=== PATIENT | female | born 1985 | race Caucasian/White ===

== ENCOUNTER 2019-07-02 15:14 | Inpatient (IN) | payer MEDICAID, OTHER ==
[~2019-07-02] VITALS: Ht 165.1 cm; Wt 90.9 kg
[~2019-07-02 15:14] MED LIST: DIVA500T52 PO; METF-960 PO
[2019-07-02] MEDS ORDERED: LORazepam 2 MG TABLET PO ONE (15:30)
[2019-07-02] MEDS ORDERED: DiphenhydrAMINE HCL 50 MG CAPSULE PO ONE (15:30)
[2019-07-02] MEDS ORDERED: OLANZapine 5 MG TABLET PO ONE (15:30)
[2019-07-02 16:41] LABS: BASOPHILS % (AUTO) 0.3 % (0.0-2.0); EOSINOPHILS % (AUTO) 0.1 % (1.0-6.0); HEMATOCRIT 40.1 % (36-46); HEMOGLOBIN 13.8 g/dL (12.0-16.0); LYMPHOCYTES # (AUTO) 1.8 K/uL (1.0-4.8); LYMPHOCYTES % (AUTO) 18.6 % (22.0-44.0); MEAN CORPUSCULAR HGB CONC 34.3 G/dL (31.0-37.0); MEAN CORPUSCULAR VOLUME 90 fL (80-100); MONOCYTES # (AUTO) 0.7 K/uL (0.1-1.0); MONOCYTES % (AUTO) 7.2 % (2.0-9.0); NEUTROPHILS # (AUTO) 7.1 K/uL (1.8-7.7); NEUTROPHILS % (AUTO) 73.8 % (40.0-70.0); PLATELET COUNT (AUTO) 255 K/uL (150-450); RED BLOOD CELL COUNT(AUTO) 4.44 MIL/uL (4.00-5.20); RED CELL DISTRIBUTION WIDTH 13.1 % (11.5-14.5)
[2019-07-02 16:48] LABS: ANION GAP 9 mmol/L (8-16); CALCIUM, TOTAL 8.5 mg/dL (8.8-10.5); CARBON DIOXIDE 27 mmol/L (22-29); CHLORIDE 98 mmol/L (98-107); CREATININE 0.67 mg/dL (0.60-1.30); GLOMERULAR FILTR. RATE CALC > 60 mL/min (>60); GLUCOSE,RANDOM 235 mg/dL (70-110); POTASSIUM 3.2 mmol/L (3.5-5.1); SODIUM SERUM 134 mmol/L (136-145); UREA NITROGEN, BLOOD 15 mg/dL (7-18)
[2019-07-02] MEDS ORDERED: POTASSIUM CHLORIDE 20 MEQ ER TABLET PO ONE (17:00)
[2019-07-02 17:05] LABS: ALANINE AMINOTRANSFERASE 38 U/L (12-78); ALBUMIN 3.7 g/dL (3.4-5.0); ALKALINE PHOSPHATASE 76 U/L (46-116); ASPARTATE AMINOTRANSFERASE 32 U/L (15-37); BILIRUBIN,TOTAL 0.8 mg/dL (0.1-1.0); HCG,QUANTITATIVE < 1 mIU/mL (0-6); THYROID STIMULATING HORMONE 1.07 uIU/mL (0.36-3.74); TOTAL PROTEIN, SERUM 7.2 g/dL (6.4-8.2); VALPROIC ACID 4 mcg/mL (50-100)
[2019-07-02 17:11] LABS: LITHIUM < 0.20 mmol/L (0.60-1.20)
[2019-07-02] MEDS ORDERED: ZOLPIDEM TARTRATE 10 MG TABLET PO PRN (19:45)
[2019-07-02] MEDS ORDERED: OLANZapine 5 MG RAPDIS TABLET PO PRN (19:45)
[2019-07-02] MEDS ORDERED: INFLUENZA VIRUS VACCINE QVS 2019-20 (3YR+)/PF 60 MCG/0.5 ML SYRINGE IM ONE (22:15)
[2019-07-02 22:23] VITALS: BP 149/52
[2019-07-03] MEDS: MetFORMIN HCL 500 MG TABLET PO SCH ×2 (06:44→16:39)
[2019-07-03 08:19] VITALS: BP 118/62
[2019-07-03 16:00] VITALS: BP 110/70
[2019-07-03] MEDS: DIVALPROEX SODIUM 500 MG ER TABLET PO SCH (17:00)
[2019-07-03] MEDS: OLANZapine 5 MG TABLET PO SCH (17:00)
[2019-07-04] MEDS: MetFORMIN HCL 500 MG TABLET PO SCH ×2 (06:13→17:00)
[2019-07-04] MEDS: OLANZapine 5 MG TABLET PO SCH ×2 (09:00→17:00)
[2019-07-04] MEDS: DIVALPROEX SODIUM 500 MG ER TABLET PO SCH ×2 (09:00→17:00)
[2019-07-04] MEDS: LORazepam 2 MG TABLET PO PRN (10:11)
[2019-07-04 18:22] VITALS: BP 118/82
[2019-07-05] MEDS: MetFORMIN HCL 500 MG TABLET PO SCH (07:00)
[2019-07-05] MEDS: DIVALPROEX SODIUM 500 MG ER TABLET PO SCH (09:00)
[2019-07-05] MEDS: OLANZapine 5 MG TABLET PO SCH (09:00)
[2019-07-05] MEDS: LORazepam 2 MG TABLET PO PRN (14:25)
[2019-07-05] MEDS ORDERED: OLAN5TAB2 PO (15:45)
== END 2019-07-05 17:10 | disposition home or self-care (01) | DRG 750 ==
LOC: EMS 15:14 → B3A 20:00
PROVIDERS: ADMIT Psychiatry & Neurology Child & Adolescent Psychiatry; ATTEND Psychiatry & Neurology Child & Adolescent Psychiatry
DX: F25.0 Schizoaffective disorder, bipolar type (principal); Z78.1 Physical restraint status; E11.9 Type 2 diabetes mellitus without complications; E87.6 Hypokalemia; F10.10 Alcohol abuse, uncomplicated; F15.10 Other stimulant abuse, uncomplicated; F17.210 Nicotine dependence, cigarettes, uncomplicated; I10 Essential (primary) hypertension; G43.909 Migraine, unspecified, not intractable, without status migrainosus; Z59.0 Homelessness; Z91.14 Patient's other noncompliance with medication regimen
CPT/HCPCS: 84443; G0480

== ENCOUNTER 2019-10-17 16:41 | Inpatient (IN) | payer MEDICAID, OTHER ==
[~2019-10-17] VITALS: Ht 167.6 cm; Wt 97.2 kg
[~2019-10-17 16:41] MED LIST changes: +OLAN5TAB2 PO
[2019-10-17] MEDS ORDERED: ZOLPIDEM TARTRATE 10 MG TABLET PO PRN (18:00)
[2019-10-17] MEDS ORDERED: LORazepam 2 MG TABLET PO PRN (18:00)
[2019-10-17] MEDS ORDERED: LORazepam 2 MG TABLET PO ONE (18:00)
[2019-10-17] MEDS ORDERED: OLANZapine 5 MG RAPDIS TABLET PO PRN (18:00)
[2019-10-17 18:12] LABS: BASOPHILS % (AUTO) 0.2 % (0.0-2.0); EOSINOPHILS % (AUTO) 2.4 % (1.0-6.0); HEMATOCRIT 41.4 % (36-46); HEMOGLOBIN 14.1 g/dL (12.0-16.0); LYMPHOCYTES # (AUTO) 2.1 K/uL (1.0-4.8); LYMPHOCYTES % (AUTO) 19.5 % (22.0-44.0); MEAN CORPUSCULAR HGB CONC 33.9 G/dL (31.0-37.0); MEAN CORPUSCULAR VOLUME 91 fL (80-100); MONOCYTES # (AUTO) 0.8 K/uL (0.1-1.0); MONOCYTES % (AUTO) 7.1 % (2.0-9.0); NEUTROPHILS # (AUTO) 7.5 K/uL (1.8-7.7); NEUTROPHILS % (AUTO) 70.8 % (40.0-70.0); PLATELET COUNT (AUTO) 269 K/uL (150-450); RED BLOOD CELL COUNT(AUTO) 4.54 MIL/uL (4.00-5.20); RED CELL DISTRIBUTION WIDTH 13.6 % (11.5-14.5)
[2019-10-17 19:31] LABS: ANION GAP 11 mmol/L (8-16); CALCIUM, TOTAL 8.8 mg/dL (8.8-10.5); CARBON DIOXIDE 28 mmol/L (22-29); CHLORIDE 99 mmol/L (98-107); GLOMERULAR FILTR. RATE CALC > 60 mL/min (>60); GLUCOSE,RANDOM 199 mg/dL (70-110); POTASSIUM 3.1 mmol/L (3.5-5.1); SODIUM SERUM 138 mmol/L (136-145); UREA NITROGEN, BLOOD 14 mg/dL (7-18)
[2019-10-17 19:35] VITALS: BP 130/73
[2019-10-17] MEDS ORDERED: HALOPERIDOL LACTATE 5 MG/ML VIAL ONE (19:40)
[2019-10-17] MEDS ORDERED: LORazepam 2 MG/ML VIAL ONE (19:40)
[2019-10-17] MEDS ORDERED: DiphenhydrAMINE HCL 50 MG/ML VIAL ONE (19:40)
[2019-10-17] MEDS ORDERED: HALOPERIDOL LACTATE 5 MG/ML VIAL IM ONE (19:45)
[2019-10-17] MEDS ORDERED: LORazepam 2 MG/ML VIAL IM ONE (19:45)
[2019-10-17] MEDS ORDERED: DiphenhydrAMINE HCL 50 MG/ML VIAL IM ONE (19:45)
[2019-10-17 19:58] LABS: ALANINE AMINOTRANSFERASE 65 U/L (12-78); ALBUMIN 3.6 g/dL (3.4-5.0); ALKALINE PHOSPHATASE 95 U/L (46-116); ASPARTATE AMINOTRANSFERASE 52 U/L (15-37); BILIRUBIN,TOTAL 0.5 mg/dL (0.1-1.0); HCG,QUANTITATIVE < 1 mIU/mL (0-6); TOTAL PROTEIN, SERUM 7.5 g/dL (6.4-8.2)
[2019-10-17] MEDS ORDERED: PERMETHRIN 5% 60 GM CREAM TP ONE (20:15)
[2019-10-17] MEDS ORDERED: POTASSIUM CHLORIDE 20 MEQ ER TABLET PO ONE (20:15)
[2019-10-17] MEDS ORDERED: PNEUMOCOCCAL VACCINE POLYVALENT 0.5 ML VIAL [PPSV23] IM ONE (20:30)
[2019-10-18 03:15] VITALS: BP 124/68
[2019-10-18] MEDS: MetFORMIN HCL 500 MG TABLET PO SCH ×2 (07:00→17:00)
[2019-10-18] MEDS ORDERED: IBUPROFEN 600 MG TABLET PO PRN (13:00)
[2019-10-18] MEDS ORDERED: MAGNESIUM HYDROXIDE SUSPENSION 30 ML UDCUP PO PRN (13:00)
[2019-10-18] MEDS ORDERED: DOCUSATE SODIUM 100 MG CAPSULE PO PRN (13:00)
[2019-10-18] MEDS ORDERED: ACETAMINOPHEN 325 MG TABLET PO PRN (13:00)
[2019-10-18] MEDS ORDERED: MAG HYDROX/AL HYDROX/SIMETH ES 30 ML SUSPENSION UDCUP PO PRN (13:00)
[2019-10-18] MEDS ORDERED: ALBUTEROL SULFATE HFA 90 MCG/PUFF 8 GM INHALER IH PRN (13:00)
[2019-10-18] MEDS ORDERED: PETROLATUM,WHITE 28 GM JELLY TP PRN (13:00)
[2019-10-18] MEDS ORDERED: OMEPRAZOLE 20 MG CAPSULE PO PRN (13:00)
[2019-10-18] MEDS ORDERED: BACITRACIN 28.4 GM OINTMENT TP PRN (13:00)
[2019-10-18] MEDS ORDERED: BENZOCAINE/MENTHOL LOZENGE MM PRN (13:00)
[2019-10-18] MEDS ORDERED: CloNIDine HCL 0.1 MG TABLET PO PRN (13:00)
[2019-10-18] MEDS ORDERED: LOPERAMIDE HCL 2 MG CAPSULE PO PRN (13:00)
[2019-10-18] MEDS ORDERED: ONDANSETRON HCL 4 MG TABLET PO PRN (13:00)
[2019-10-19 03:05] VITALS: BP 119/66
[2019-10-19] MEDS: MetFORMIN HCL 500 MG TABLET PO SCH ×2 (06:52→17:00)
[2019-10-19] MEDS: DIVALPROEX SODIUM 500 MG ER TABLET PO SCH ×2 (09:00→17:00)
[2019-10-19 16:23] VITALS: BP 118/62
[2019-10-19] MEDS: OLANZapine 10 MG TABLET PO SCH (20:44)
[2019-10-20 00:06] VITALS: BP 125/77
[2019-10-20] MEDS: MetFORMIN HCL 500 MG TABLET PO SCH ×2 (06:34→16:14)
[2019-10-20] MEDS: DIVALPROEX SODIUM 500 MG ER TABLET PO SCH ×2 (08:44→16:13)
[2019-10-20 17:12] VITALS: BP 112/55
[2019-10-20] MEDS: OLANZapine 10 MG TABLET PO SCH (21:00)
[2019-10-21] MEDS: MetFORMIN HCL 500 MG TABLET PO SCH (07:00)
[2019-10-21] MEDS: DIVALPROEX SODIUM 500 MG ER TABLET PO SCH (08:59)
[2019-10-21] MEDS ORDERED: DIVA500T52 PO (11:49)
[2019-10-21] MEDS ORDERED: OLAN10TA6 PO (11:51)
[2019-10-21] MEDS ORDERED: METF500T PO (11:54)
[2019-10-23] MEDS ORDERED: METF-960 PO (09:15)
[2019-10-24] MEDS ORDERED: GLIP5TAB11 PO (12:39)
== END 2019-10-21 13:50 | disposition home or self-care (01) | DRG 753 ==
LOC: EMS 16:41 → B3A 18:14
PROVIDERS: ADMIT Psychiatry & Neurology Psychiatry; ATTEND Psychiatry & Neurology Psychiatry
DX: F31.9 Bipolar disorder, unspecified (principal); E11.9 Type 2 diabetes mellitus without complications; F20.9 Schizophrenia, unspecified; F15.90 Other stimulant use, unspecified, uncomplicated; Z88.8 Allergy status to other drugs, medicaments and biological substances; F17.210 Nicotine dependence, cigarettes, uncomplicated; F19.10 Other psychoactive substance abuse, uncomplicated; I10 Essential (primary) hypertension; F41.9 Anxiety disorder, unspecified; G43.909 Migraine, unspecified, not intractable, without status migrainosus; E87.6 Hypokalemia; G47.00 Insomnia, unspecified; K59.00 Constipation, unspecified; Z28.21 Immunization not carried out because of patient refusal; Z72.89 Other problems related to lifestyle
CPT/HCPCS: G0480; J1200; J1630; J2060

== ENCOUNTER 2020-04-02 00:39 | Emergency (ER) | payer OTHER ==
[~2020-04-02] VITALS: Ht 157.5 cm; Wt 81.8 kg
[~2020-04-02 00:39] MED LIST changes: +DIVA-80 PO; -DIVA500T52 PO; +GLIP5TAB11 PO; -METF-960 PO; +OLAN10TA6 PO; -OLAN5TAB2 PO
[2020-04-02 00:54] VITALS: BP 161/110
== END 2020-04-02 01:53 | disposition home or self-care (01) ==
LOC: EMS 00:43
DX: F15.90 Other stimulant use, unspecified, uncomplicated (principal); F31.9 Bipolar disorder, unspecified; F17.210 Nicotine dependence, cigarettes, uncomplicated; Z88.8 Allergy status to other drugs, medicaments and biological substances
CPT/HCPCS: 99283; Z7502

== ENCOUNTER 2020-07-29 13:31 | Inpatient (IN) | payer MEDICAID, OTHER ==
[~2020-07-29] VITALS: Ht 167.6 cm; Wt 75.0 kg
[2020-07-29 15:16] LABS: COVID AG,FIA SOURCE NASOPHARYNGEAL
[2020-07-29] MEDS ORDERED: ZOLPIDEM TARTRATE 10 MG TABLET PO PRN (15:45)
[2020-07-29] MEDS ORDERED: HALOPERIDOL 5 MG TABLET PO PRN (15:45)
[2020-07-29 17:47] LABS: ANION GAP 9 mmol/L (8-16); BASOPHILS % (AUTO) 0.4 % (0.0-2.0); CALCIUM, TOTAL 8.4 mg/dL (8.8-10.5); CARBON DIOXIDE 27 mmol/L (22-29); CHLORIDE 102 mmol/L (98-107); CREATININE 0.46 mg/dL (0.60-1.30); EOSINOPHILS % (AUTO) 2.3 % (1.0-6.0); GLOMERULAR FILTR. RATE CALC > 60 mL/min (>60); GLUCOSE,RANDOM 235 mg/dL (70-110); HEMOGLOBIN 12.7 g/dL (12.0-16.0); LYMPHOCYTES # (AUTO) 2.3 K/uL (1.0-4.8); LYMPHOCYTES % (AUTO) 22.8 % (22.0-44.0); MEAN CORPUSCULAR HEMOGLOBIN 30.2 pg (26.0-34.0); MEAN CORPUSCULAR HGB CONC 33.4 G/dL (31.0-37.0); MEAN CORPUSCULAR VOLUME 91 fL (80-100); MONOCYTES # (AUTO) 0.7 K/uL (0.1-1.0); MONOCYTES % (AUTO) 7.1 % (2.0-9.0); NEUTROPHILS # (AUTO) 6.9 K/uL (1.8-7.7); NEUTROPHILS % (AUTO) 67.4 % (40.0-70.0); POTASSIUM 3.4 mmol/L (3.5-5.1); RED CELL DISTRIBUTION WIDTH 14.3 % (11.5-14.5); SODIUM SERUM 138 mmol/L (136-145); UREA NITROGEN, BLOOD 5 mg/dL (7-18)
[2020-07-29 17:58] LABS: ALANINE AMINOTRANSFERASE 29 U/L (12-78); ALBUMIN 2.6 g/dL (3.4-5.0); ALKALINE PHOSPHATASE 90 U/L (46-116); ASPARTATE AMINOTRANSFERASE 27 U/L (15-37); BILIRUBIN,TOTAL 0.2 mg/dL (0.1-1.0); HCG,QUANTITATIVE < 1 mIU/mL (0-6); TOTAL PROTEIN, SERUM 6.9 g/dL (6.4-8.2)
[2020-07-29 18:14] LABS: PLATELET COUNT (AUTO) 301 K/uL (150-450); PLATELET MORPHOLOGY COMMENT LARGE PLTS PRESENT
[2020-07-29] MEDS ORDERED: DiphenhydrAMINE HCL 50 MG/ML VIAL ONE (18:29)
[2020-07-29] MEDS ORDERED: LORazepam 2 MG/ML VIAL ONE (18:29)
[2020-07-29] MEDS ORDERED: HALOPERIDOL LACTATE 5 MG/ML VIAL ONE (18:42)
[2020-07-29] MEDS ORDERED: LORazepam 2 MG/ML VIAL IM ONE (18:45)
[2020-07-29] MEDS ORDERED: HALOPERIDOL LACTATE 5 MG/ML VIAL IM ONE (18:45)
[2020-07-29] MEDS ORDERED: DiphenhydrAMINE HCL 50 MG/ML VIAL IM ONE (18:45)
[2020-07-29 20:05] LABS: GLUCOMETER DEV NAME(LOC) BV3S.; GLUCOSE,POINT OF CARE 196 MG/DL (70-110)
[2020-07-29 20:46] VITALS: BP 142/84
[2020-07-30 00:13] VITALS: BP 132/81
[2020-07-30] MEDS ORDERED: INFLUENZA VIRUS VACCINE QVS 2020-21 (6MO+)/PF 60 MCG/0.5 ML SYRINGE IM ONE (05:30)
[2020-07-30] MEDS ORDERED: PNEUMOCOCCAL VACCINE POLYVALENT 0.5 ML VIAL [PPSV23] IM ONE (05:30)
[2020-07-30] MEDS: GlipiZIDE 5 MG TABLET PO SCH (06:30)
[2020-07-30] MEDS: LORazepam 2 MG TABLET PO PRN ×2 (08:14→17:13)
[2020-07-30] MEDS: DIVALPROEX SODIUM 500 MG ER TABLET PO SCH ×2 (08:18→17:00)
[2020-07-30 08:20] VITALS: BP 138/85
[2020-07-30] MEDS ORDERED: OMEPRAZOLE 20 MG CAPSULE PO PRN (09:00)
[2020-07-30] MEDS ORDERED: GLUCAGON,HUMAN RECOMBINANT 1 MG VIAL IM PRN (09:00)
[2020-07-30] MEDS ORDERED: LOPERAMIDE HCL 2 MG CAPSULE PO PRN (09:00)
[2020-07-30] MEDS ORDERED: ONDANSETRON HCL 4 MG TABLET PO PRN (09:00)
[2020-07-30] MEDS ORDERED: CloNIDine HCL 0.1 MG TABLET PO PRN (09:00)
[2020-07-30] MEDS ORDERED: BENZOCAINE/MENTHOL LOZENGE PO PRN (09:00)
[2020-07-30] MEDS ORDERED: IBUPROFEN 600 MG TABLET PO PRN (09:00)
[2020-07-30] MEDS ORDERED: MAGNESIUM HYDROXIDE SUSPENSION 30 ML UDCUP PO PRN (09:00)
[2020-07-30] MEDS ORDERED: PETROLATUM,WHITE 28 GM JELLY TP PRN (09:00)
[2020-07-30] MEDS ORDERED: ALBUTEROL SULFATE HFA 90 MCG/PUFF 8 GM INHALER IH PRN (09:00)
[2020-07-30] MEDS ORDERED: DOCUSATE SODIUM 100 MG CAPSULE PO PRN (09:00)
[2020-07-30] MEDS ORDERED: BACITRACIN 28 GM OINTMENT TP PRN (09:00)
[2020-07-30] MEDS ORDERED: ACETAMINOPHEN 325 MG TABLET PO PRN (09:00)
[2020-07-30] MEDS ORDERED: INSULIN LISPRO 100 UNITS/ML SQ PRN (09:00)
[2020-07-30] MEDS ORDERED: MAG HYDROX/AL HYDROX/SIMETH ES 30 ML SUSPENSION UDCUP PO PRN (09:00)
[2020-07-30] MEDS: OLANZapine 10 MG RAPDIS TABLET PO SCH (20:47)
[2020-07-31] MEDS: GlipiZIDE 5 MG TABLET PO SCH (06:30)
[2020-07-31] MEDS: LORazepam 2 MG TABLET PO PRN ×2 (08:54→16:45)
[2020-07-31] MEDS: DIVALPROEX SODIUM 500 MG ER TABLET PO SCH ×2 (09:00→17:00)
[2020-07-31] MEDS: OLANZapine 10 MG RAPDIS TABLET PO SCH (20:19)
[2020-08-01 01:00] VITALS: BP 124/88
[2020-08-01] MEDS: GlipiZIDE 5 MG TABLET PO SCH (06:30)
[2020-08-01] MEDS: DIVALPROEX SODIUM 500 MG ER TABLET PO SCH ×2 (08:19→17:00)
[2020-08-01] MEDS: LORazepam 2 MG TABLET PO PRN (17:23)
[2020-08-01] MEDS: OLANZapine 10 MG RAPDIS TABLET PO SCH (20:46)
[2020-08-02 02:07] VITALS: BP 122/81
[2020-08-02] MEDS: GlipiZIDE 5 MG TABLET PO SCH (06:30)
[2020-08-02] MEDS: DIVALPROEX SODIUM 500 MG ER TABLET PO SCH ×2 (08:05→16:23)
[2020-08-02 08:41] VITALS: BP 118/84
[2020-08-02] MEDS: LORazepam 2 MG TABLET PO PRN (09:14)
[2020-08-02] MEDS: OLANZapine 10 MG RAPDIS TABLET PO SCH (20:48)
[2020-08-03 01:43] VITALS: BP 104/78
[2020-08-03] MEDS: LORazepam 2 MG TABLET PO PRN ×2 (02:30→13:44)
[2020-08-03] MEDS: GlipiZIDE 5 MG TABLET PO SCH (06:30)
[2020-08-03] MEDS: DIVALPROEX SODIUM 500 MG ER TABLET PO SCH ×2 (08:29→16:21)
[2020-08-03] MEDS: OLANZapine 10 MG RAPDIS TABLET PO SCH (20:34)
[2020-08-04 00:49] VITALS: BP 151/80
[2020-08-04] MEDS: GlipiZIDE 5 MG TABLET PO SCH (06:44)
[2020-08-04 08:11] VITALS: BP 139/89
[2020-08-04] MEDS: DIVALPROEX SODIUM 500 MG DR TABLET PO SCH ×2 (08:26→16:38)
[2020-08-04] MEDS: LORazepam 2 MG TABLET PO PRN (10:36)
[2020-08-04] MEDS ORDERED: LORazepam 2 MG/ML VIAL ONE (13:42)
[2020-08-04] MEDS ORDERED: HALOPERIDOL LACTATE 5 MG/ML VIAL ONE (13:42)
[2020-08-04] MEDS ORDERED: DiphenhydrAMINE HCL 50 MG/ML VIAL ONE (13:43)
[2020-08-04] MEDS ORDERED: LORazepam 2 MG/ML VIAL IM ONE (13:45)
[2020-08-04] MEDS ORDERED: HALOPERIDOL LACTATE 5 MG/ML VIAL IM ONE (13:45)
[2020-08-04] MEDS ORDERED: DiphenhydrAMINE HCL 50 MG/ML VIAL IM ONE (13:45)
[2020-08-04] MEDS: OLANZapine 10 MG RAPDIS TABLET PO SCH (21:00)
[2020-08-05 00:08] VITALS: BP 126/82
[2020-08-05] MEDS: GlipiZIDE 5 MG TABLET PO SCH (06:47)
[2020-08-05] MEDS: LORazepam 2 MG TABLET PO PRN (09:12)
[2020-08-05] MEDS: DIVALPROEX SODIUM 500 MG DR TABLET PO SCH ×2 (09:12→16:46)
[2020-08-05 12:54] VITALS: BP 121/69
[2020-08-05 16:03] VITALS: BP 121/67
[2020-08-05] MEDS: OLANZapine 10 MG RAPDIS TABLET PO SCH (21:15)
[2020-08-06 01:15] VITALS: BP 118/63
[2020-08-06] MEDS: GlipiZIDE 5 MG TABLET PO SCH (06:30)
[2020-08-06] MEDS: DIVALPROEX SODIUM 500 MG DR TABLET PO SCH ×2 (10:05→16:01)
[2020-08-06] MEDS: LORazepam 2 MG TABLET PO PRN (10:15)
[2020-08-06] MEDS: OLANZapine 10 MG RAPDIS TABLET PO SCH (20:07)
[2020-08-07 00:53] VITALS: BP 112/68
[2020-08-07] MEDS: GlipiZIDE 5 MG TABLET PO SCH (06:04)
[2020-08-07 08:14] VITALS: BP 125/79
[2020-08-07] MEDS: DIVALPROEX SODIUM 500 MG DR TABLET PO SCH ×3 (09:00→16:20)
[2020-08-07] MEDS: LORazepam 2 MG TABLET PO PRN (11:07)
[2020-08-07] MEDS: OLANZapine 10 MG RAPDIS TABLET PO SCH (21:00)
[2020-08-08] MEDS: GlipiZIDE 5 MG TABLET PO SCH (06:24)
[2020-08-08 06:59] VITALS: BP 116/70
[2020-08-08] MEDS: LORazepam 2 MG TABLET PO PRN ×2 (08:49→15:36)
[2020-08-08] MEDS: DIVALPROEX SODIUM 500 MG DR TABLET PO SCH ×2 (08:49→16:11)
[2020-08-08 16:14] VITALS: BP 113/69
[2020-08-08] MEDS: OLANZapine 10 MG RAPDIS TABLET PO SCH (21:00)
[2020-08-09 00:08] VITALS: BP 110/72
[2020-08-09] MEDS: GlipiZIDE 5 MG TABLET PO SCH (06:30)
[2020-08-09] MEDS: DIVALPROEX SODIUM 500 MG DR TABLET PO SCH (08:09)
== END 2020-08-09 12:11 | disposition home or self-care (01) | DRG 885 ==
LOC: EMS 13:36 → B3A 17:17
PROVIDERS: ADMIT Psychiatry & Neurology Psychiatry; ATTEND Psychiatry & Neurology Psychiatry
DX: F25.9 Schizoaffective disorder, unspecified (principal); Z59.0 Homelessness; F19.10 Other psychoactive substance abuse, uncomplicated; E11.9 Type 2 diabetes mellitus without complications; I10 Essential (primary) hypertension; G43.909 Migraine, unspecified, not intractable, without status migrainosus; F41.9 Anxiety disorder, unspecified; K59.00 Constipation, unspecified; G47.00 Insomnia, unspecified; F31.9 Bipolar disorder, unspecified; Z91.14 Patient's other noncompliance with medication regimen; F15.90 Other stimulant use, unspecified, uncomplicated; F17.210 Nicotine dependence, cigarettes, uncomplicated; Z88.8 Allergy status to other drugs, medicaments and biological substances; Z20.822 Contact with and (suspected) exposure to COVID-19; Z28.21 Immunization not carried out because of patient refusal
CPT/HCPCS: 87426; 99285; G0480; J1200; J1630; J2060

== ENCOUNTER 2022-01-29 05:13 | Emergency (ER) | payer MEDICAID ==
[~2022-01-29] VITALS: Ht 160 cm; Wt 127.3 kg
[~2022-01-29 05:13] MED LIST changes: +OLAN10TA26 PO; -OLAN10TA6 PO
[2022-01-29 06:44] VITALS: BP 133/67
== END 2022-01-29 06:57 | disposition home or self-care (01) ==
LOC: EMS 05:17
DX: Z48.00 Encounter for change or removal of nonsurgical wound dressing (principal); L03.114 Cellulitis of left upper limb; F10.20 Alcohol dependence, uncomplicated; F15.10 Other stimulant abuse, uncomplicated; F17.210 Nicotine dependence, cigarettes, uncomplicated; F31.9 Bipolar disorder, unspecified
CPT/HCPCS: 99283; Z7502

== ENCOUNTER 2022-12-16 19:14 | Emergency (ER) | payer MEDICAID, OTHER ==
[~2022-12-16] VITALS: Ht 167.6 cm; Wt 113.6 kg
[~2022-12-16 19:14] MED LIST changes: -DIVA-80 PO; +DIVA500T53 PO
[2022-12-16] MEDS ORDERED: PRED-554 PO (21:43)
[2022-12-16] MEDS ORDERED: AMOX250C4 PO (21:43)
[2022-12-16] MEDS ORDERED: BENZ-227 PO (21:45)
[2022-12-16 22:04] VITALS: BP 133/75; PULSE 78; RESP 16; TEMP 98.3
== END 2022-12-16 22:20 | disposition home or self-care (01) ==
LOC: EMS 19:15
DX: J40 Bronchitis, not specified as acute or chronic (principal); F31.9 Bipolar disorder, unspecified; F15.90 Other stimulant use, unspecified, uncomplicated; Z87.891 Personal history of nicotine dependence; Z88.8 Allergy status to other drugs, medicaments and biological substances
CPT/HCPCS: 71045; 99283